=== PATIENT | male | born 1975 | race African-American/Black ===

== ENCOUNTER 2023-07-23 09:52 | Emergency (ER) | payer BC, SELFPAY ==
[2023-07-23 10:04] VITALS: BP 146/90
--- NOTE | 2023-07-23 10:51 | ED.GENMED ---
History of Present Illness
General
Chief Complaint: Cold/Flu/URI Symptoms
Source: patient
Exam Limitations: none
Time Seen by Provider: 07/23/23 10:38
Travel History
Have you had any contact with someone who has COVID-19?: No
Do you have any symptoms of coronavirus? Fever > 100 degrees, chills, cough, shortness of breath, sore throat, loss of taste or smell, muscle aches, or headache?: Yes
Symptoms:: cough
History of Present Illness
History of Present Illness:
48-year-old male presents with 3 days worth of fatigue body aches fever cough congestion. He denies shortness of breath. He denies vomiting. He is healthy. Does not smoke. No other complaints at this time. Other household members are sick with
similar symptoms.
Phy Exam
Physical Exam
Physical Exam:
General: Well-appearing nontoxic male no acute respiratory distress
HEENT: Normocephalic atraumatic neck is supple
Heart: Regular rate and rhythm no murmurs
Lungs: Clear to auscultation bilaterally no wheeze
Extremities: No cyanosis or edema
Course
Orders/Labs/Results
Orders:
Orders
07/23/23 10:38
COVID-19 Antigen Urgent
Source: Nasal Swab
INF RAPID [Influenza A+B Rapid Molecular] Urgent
ALEKSANDR Source: Nasal Swab
Specimen Description:
Vital Signs
Initial and Last Documented VS:
Initial Vital Signs
Temp Pulse Resp BP Pulse Ox
98.6 F 109 18 146/90 96
07/23/23 10:04 07/23/23 10:04 07/23/23 10:04 07/23/23 10:04 07/23/23 10:04
Last Documented Vital Signs
Temp Pulse Resp BP Pulse Ox
98.6 F 109 18 146/90 96
07/23/23 10:04 07/23/23 10:04 07/23/23 10:04 07/23/23 10:04 07/23/23 10:04
MDM/Problems Addressed
Differential Diagnosis Includes:
Flulike symptoms. Consider COVID or flu. Not hypoxic no indication for x-ray afebrile currently. COVID and flu test pending
*Critical Care Note
Total Time (30-74mins, 75-104mins- exclusive of procedures): Not Applicable
Update Note
Update Note:
Patient tested positive for influenza A. No respiratory distress. Ill for more than 2 days. Not a candidate for Tamiflu. Recommend hydration and fever control and supportive care at home. Stable for discharge
ED Attending Note
-
Portions of this chart may have been created with voice recognition software.� Occasional wrong word or��sound alike� substitutions may have occurred due to the inherent limitations of voice recognition software.
Discharge Plan
Departure
Patient Disposition: Home (Routine Discharge)
Date of Disposition: 07/23/23
Time of Disposition: 11:10
Patient with high blood pressure during this ER visit?: No
Discharge Problem:
Influenza A
Instructions: Fever, Adult (DC)
Referrals:
NONE,* [Family Provider] -
Stand Alone Forms: Return to Work
Activity Restrictions/Additional Instructions:
Rest. Drink plenty of fluids. Use ibuprofen or Tylenol for fever. Return if worse otherwise follow-up with family doctor
Interventions
Interventions:
*Risk Screen - Suicide Last Done: 07/23/23 10:04
*General Assessment Last Done: 07/23/23 10:04
*Neglect/Abuse Screening Last Done: 07/23/23 10:04
*ED COVID-19 Vaccine History Last Done: 07/23/23 11:04
ED- Pulmonary Assessment Last Done: 07/23/23 11:04
[2023-07-23 11:10] LABS: COVID-19 Antigen Negative (Negative)
== END 2023-07-23 11:41 | disposition home or self-care (01) ==
LOC: EMR 09:52
PROVIDERS: Emergency Medicine; EMERGENCY PHYSICIAN Emergency Medicine
DX: J10.1 Influenza due to other identified influenza virus with other respiratory manifestations (principal); Z11.52 Encounter for screening for COVID-19
CPT/HCPCS: 99282; 87502; 87811